=== PATIENT | male | born 1990 | race Caucasian/White ===

== ENCOUNTER 2018-12-05 05:19 | Day surgery (SDC) | payer OTHER ==
[~2018-12-05] VITALS: Ht 177.8 cm; Wt 70.3 kg
--- NOTE | ~2018-12-05 | O ---
[facility] [place] [address] OPERATIVE REPORT Name: ILEANA SONG Room #: 150-3 [facility]#: [id number] Admission: 12/05/18 ������������������ Attend Phys: Devin Lopez MD Discharge: ������������������ Date of : 89 Report #: [id number] THIS REPORT FOR: //name// CC: FAM unknown Devin Lopez DATE OF SERVICE: 12/05/2018 PREOPERATIVE DIAGNOSES: Deviated nasal septum with nasal airway obstruction. POSTOPERATIVE DIAGNOSES: Deviated nasal septum with nasal airway obstruction. OPERATIVE PROCEDURE: Nasal septoplasty. ANESTHESIA: General by laryngeal mask. DESCRIPTION OF PROCEDURE: The patient was taken to the operating room and placed in supine position. General anesthesia was induced by laryngeal mask. Once adequate general anesthesia was obtained, local nasal anesthesia was induced by submucoperichondrial injection of 1% lidocaine with 1:100,000 epinephrine and topical application of cocaine solution. The patient was then draped in a sterile manner. The patient had nasal septal deviation primarily to the right side. A hemitransfixion incision was placed on the right side of the nose and the mucoperichondrium and mucoperiosteum were elevated off the septum. The cartilage was incised from the bony cartilaginous junction and a portion of cartilage and bone was removed from the midportion of the septum. There was a septal spur along the floor consisting of hypertrophic cartilage and a fracture of the maxillary crest. The cartilage was removed as a long strip, and the maxillary crest was infractured and rongeured. After these maneuvers, the septum sat more in the midline. The hemitransfixion incision was then closed with 4-0 chromic suture and a 4-0 plain mattress sutures placed as well. The patient tolerated the procedure well. BLOOD LOSS: Approximately 5 mL. The patient was awoken and taken to the recovery room in stable condition for postoperative monitoring. ��������������������������������������������� ���������������������������������������� By: ��������������������������������������������� [id number] [id number] Devin Lopez MD /nt
[2018-12-05 07:30] VITALS: BP 126/72
--- NOTE | 2018-12-05 08:08 | H ---
[facility] [place] [address] HISTORY AND PHYSICAL Name: ILEANA SONG Room #: 150-3 [facility]#: [id number] Admission: 12/05/18 ������������������ Attend Phys: Devin Lopez MD Discharge: ������������������ Date of : 89 Report #: [id number] THIS REPORT FOR: //name// CC: FAM unknown Devin Lopez His procedure is scheduled for 12/05/2018. HISTORY OF PRESENT ILLNESS: The patient has been using Afrin nasal spray every day for the last couple of years. He uses the spray every several hours. He had been unable to give it up, but I placed him on a course of prednisone and Flonase nasal spray. A CT scan of his sinuses showed a severely deviated nasal septum to the right side with decreased nasal airway, but very little swelling of the nasal tissues and his sinuses were clear. PAST MEDICAL HISTORY: Otherwise, not significant. MEDICATIONS: He takes no medications on a regular basis. ALLERGIES: He has no known drug allergies. PHYSICAL EXAMINATION: HEENT: He has a deviated nasal septum to the right side with the septum almost touching the lateral wall of the nose. His oropharynx and oral cavity were clear. NECK: He had no adenopathy or masses in his neck. IMPRESSION: Deviated nasal septum with chronic rhinitis and nasal airway obstruction. PLAN: Nasal septoplasty. ��������������������������������������������� <ELECTRONICALLY SIGNED> ���������������������������������������� By: Devin Lopez MD ��������������������������������������������� 12/05/18 0808 [id number] MD burt Mendoza
[2018-12-05 09:52] VITALS: BP 126/72
[2018-12-05 09:54] VITALS: BP 126/72
== END 2018-12-05 10:35 | disposition home or self-care (01) ==
LOC: OR 05:19 → TBA 05:19 → OR 09:49
DX: J34.2 Deviated nasal septum (principal); J34.89 Other specified disorders of nose and nasal sinuses
CPT/HCPCS: 50010; 50101; 50386; 50398; 56524; 56528; 62110; 62900; 64037; 70005